=== PATIENT | female | born 1960 | race Caucasian/White ===

== ENCOUNTER 2017-01-24 10:12 | Day surgery (SDC) | payer BC ==
[~2017-01-24] VITALS: Ht 162.6 cm; Wt 93.0 kg
[~2017-01-24 10:12] MED LIST: CELEBREX200 MG PO; CELEBREX50 MG PO; CRESTOR10 MG PO; HYDROCHLOROTHIA25 MG PO; KLOR-CON 1010 MEQ PO; PRILOSEC20 MG PO; SYNTHROID150 MCG PO; TRILIPIX45 MG; ZOLOFT100 MG PO
[2017-01-24 11:28] LABS: HEMATOCRIT 42.3 % (36.0-48.0); HEMOGLOBIN 13.9 g/dL (12-16); MCH 30.1 pg (26.0-34.0); MCHC 32.9 g/dL (31.0-37.0); MCV 91.6 fL (80.0-100.0); MEAN PLATELET VOLUME 10.1 fL (7.4-10.4); RBC 4.62 10x6/uL (4.00-5.40); RDW 13.3 % (11.5-14.5); WBC 9.7 10x3/uL (4.8-10.8)
[2017-01-24 11:39] LABS: CALC OSMOLALITY 288 mosm/kg (275-300); CALCIUM 9.1 mg/dL (8.5-10.1); CHLORIDE - SERUM 107 mmol/L (98-107); GLUCOSE 94 mg/dL (74-106); POTASSIUM - SERUM 3.6 mmol/L (3.5-5.1); SODIUM 144 mmol/L (136-145); UREA NITROGEN 18 mg/dL (7-18)
[2017-01-24 12:02] LABS: CARBON DIOXIDE 28.1 mmol/L (21.0-32.0); CREATININE - SERUM 0.7 mg/dL (0.6-1.3); eGFR NON AFRICAN AMERICAN > 90 mL/min (90-120)
[2017-01-24 12:50] VITALS: BP 114/64; Ht 162.6 cm; Wt 93.0 kg
--- NOTE | 2017-01-24 14:24 | NUR ---
NO COUNTS, NO SCD R/T PROCEDURE
--- NOTE | 2017-01-25 11:39 | OP ---
PATIENT NAME: PRANAV FORTUNE MEDICAL RECORD: [id number] :56 LOCATION:[facility] ADMISSION DATE: SURGEON: KIRSTEN GARCIA MD DATE OF OPERATION: 01/24/2017 PREOPERATIVE DIAGNOSIS: Degenerative arthritis of the right hip. POSTOPERATIVE DIAGNOSIS: Degenerative arthritis of the right hip. PROCEDURE: Right hip injection under fluoroscopy. SURGEON: Kirsten Garcia MD ANESTHESIA: TIVA. INTRAOPERATIVE COMPLICATIONS: None. SUMMARY OF PATHOLOGIC FINDINGS: The patient had ekbr-[id number] arthritis of the right hip consistent with the preoperative diagnosis. OPERATIVE SUMMARY IN DETAIL: After obtaining the appropriate preoperative orthopedic surgery consent as well as anesthetic consultation, evaluation and clearance, the patient was brought to the operating room and placed on the operating table in supine position. After adequate TIVA anesthesia was administered, the right hip was prepped and draped in a routine sterile fashion. An 18-gauge spinal needle was introduced into the hip. A small amount of Isovue was used to be sure that the needle was in the appropriate position. Having completed this, approximately 10 cc of 0.25% Marcaine with epinephrine and 80 mg of Depo-Medrol were injected into the hip. This was withdrawn. Bandage was applied. The patient tolerated the procedure well. She was taken back to outpatient in stable condition. TRANSINT:[id number] Voice Confirmation ID: [id number] DOCUMENT ID: [id number] KIRSTEN GARCIA MD at 1139 CC: [id number] DICTATION DATE: 01/24/17 2030 EMERGENCY RESPONSE COORDINATOR: 01/25/17 0213 [facility] [place]17 [place] [id number]
== END 2017-01-24 15:45 | disposition home or self-care (01) ==
LOC: D.OPS 10:12 → D.PAN 13:15 → D.OPS 13:15 → D.PAN 14:15 → D.OPS 15:45
PROVIDERS: Anesthesiology
DX: M16.11 Unilateral primary osteoarthritis, right hip (principal)

== ENCOUNTER 2018-03-18 08:00 | Outpatient (CLI) | payer BC ==
[2017-01-24 12:50] VITALS: BMI 35.2
== END 2018-03-18 09:00 | disposition home or self-care (01) ==
LOC: D.MAMMO 08:00
DX: Z12.31 Encounter for screening mammogram for malignant neoplasm of breast (principal)

== ENCOUNTER → 2018-04-24 18:50 | Outpatient (CLI) | payer BC ==
[2017-01-24 12:50] VITALS: BMI 35.2
== END | disposition home or self-care (01) ==
LOC: D.MAMMO 04-17 10:00
DX: R92.8 Other abnormal and inconclusive findings on diagnostic imaging of breast (principal)

== ENCOUNTER 2020-04-05 08:00 | Outpatient (CLI) | payer MEDICARE ==
[2017-01-24 12:50] VITALS: BMI 35.2
== END 2020-04-05 14:19 | disposition home or self-care (01) ==
LOC: D.MAMMO 08:00
PROVIDERS: ATTEND Family Medicine
DX: Z12.31 Encounter for screening mammogram for malignant neoplasm of breast (principal)